=== PATIENT | female | born 1950 | race Caucasian/White ===

== ENCOUNTER → 2016-09-07 | Day surgery (SDC) | payer MEDICARE, OTHER ==
[~2016-09-07] MED LIST: ACETAMINOPHEN/HYDROcodone 325 MG/5 MG TAB ONE; BACITRACIN IM FOR SOLN 50,000 UNIT VIAL ONE; BUPIVACAINE/EPINEPHRINE 0.25% PF 30 ML VIAL ONE; GENTAMICIN SULFATE 80 MG/2 ML VIAL ONE; KETOROLAC TROMETHAMINE 30 MG/ML (IVP) VIAL IV PUSH ONE; LACTATED RINGER'S 1000 ML INJ 1,000 ML ONE; MIDAZOLAM HCL 2 MG/2 ML VIAL ONE; MORPHINE SULFATE 4 MG/ML INJ ONE; ONDANSETRON HCL 4 MG/2 ML VIAL IV PUSH ONE; PROPOFOL 200 MG/20 ML AMP IV ONE; SODIUM CHLORIDE 0.9% 250 ML ADDBAG IV ONE; SODIUM CHLORIDE 0.9% INJ 10 ML ONE; VANCOMYCIN HCL 1000 MG VIAL ONE; ceFAZolin 2 GM PREMIX 50 ML ONE; ceFAZolin INJ 1,000 MG VIAL ONE
--- NOTE | 2016-09-07 08:59 | TN ---
cc: PRABHJOT PONCE M.D. DATE OF SURGERY 09/07/2016 PREOPERATIVE DIAGNOSIS 1. Right knee medial compartment osteoarthritis, genu varus deformity. 2. Right knee chondromalacia patella 3. Morbid obesity POSTOPERATIVE DIAGNOSIS 1. Right knee medial compartment osteoarthritis, genu varus deformity. 2. Right knee chondromalacia patella 3. Morbid obesity PROCEDURE Right knee medial unicondylar arthroplasty, partial patellectomy SURGEON Pati Ponce MD SENIOR MEDICAL TRANSCRIPTIONIST MD Raeann Love PA-C SPECIMENS None ESTIMATED BLOOD LOSS Minimum COMPLICATIONS None ANESTHESIA General DRAINS One TOURNIQUET TIME 14 minutes at 300 mmHg CONDITION Stable PLAN OF ACTIVITY Per orders. PROCEDURE My delivery driver assistant, Van Ponce MD was present for the entire surgical case. He was medically necessary for the entire case because of the complexity of the case and to facilitate the performance of the procedure. The TECHNICAL SUPPORT 1 SOFTWARE ENGINEER at the back table was not a skill set this case to manipulate the instruments e.g. the multiple different types of soft tissue retractors, trial implants, permanent plans including bone cement. The patient was brought into the operating room and had satisfactory general endotracheal anesthesia by Dr. Gaspar of the Department Anesthesia. With the patient's morbid obesity, a considerable amount of time and care was made to protect all pressure points. The right lower extremity was prepped and draped in he usual sterile manner. The extremity was exsanguinated by Rajeev wrap, tourniquet was inflated to 300 mmHg. An anterior medial exposure to the knee was made. Dissection carried through a considerable amount of adipose tissue down to the underlying fascia. Paramedian capsulotomy was performed. The patient was found to have chondromalacia of the medial facette of the patella and also moderately severe osteoarthritis involving the medial compartment. The anterior cruciate ligament was preserved. The remaining portion of the medial meniscus was removed. The medial facet osteoarthritis of the patella was removed using oscillating saw with a partial patellectomy. Using the [employer] unicondylar arthroplasty system, the distal femur was prepared. An oscillating saw was used to remove the posterior condyle proximally 6-7 mm. A bur was then used to contour the proximal tibia to accept a #1 tibia, 6.5 mm tibial component. The distal femur was prepared to accept a #1 right medial femoral component. Trial reduction was made. The patient was found to have excellent balance with flexion/extension. All trial components removed. Preparation for cementing was made. Initially, the knee was injected with 50 cc of 0.25% Marcaine with epinephrine to provide postoperative analgesia and also postoperative hemostasis. One package of high viscosity bone cement by [employer] was used. First the tibial component was cemented followed by the femoral component. All excess bone cement was removed. The bone cement was allowed to harden for 14 minutes. The wound was irrigated with copious amounts of sterile saline. The wound itself was dry. The tourniquet was deflated. All bleeders were coagulated. The wound itself was dry. It was closed over an eighth inch Hemovac drain. The capsule was repaired with multiple #2 Tycron sutures. The subcutaneous tissues closed in multiple layers using 0 Vicryl and 2-0 Vicryl. The skin was approximated with running subcuticular 3-0 Vicryl. Benzoin, Steri-Strips were used. A sterile dressing applied. The patient tolerated the procedure well and arrived in the Recovery Room in stable and satisfactory condition. MD JULIO CESAR Chaudhry/AZIZA /8:37 AM /8:48 AM
== END | disposition home or self-care (01) ==
LOC: ESDC 06:03
PROVIDERS: ATTEND Orthopaedic Surgery Orthopaedic Surgery of the Spine
DX: M17.11 Unilateral primary osteoarthritis, right knee (principal); M21.161 Varus deformity, not elsewhere classified, right knee; M22.41 Chondromalacia patellae, right knee; E66.01 Morbid (severe) obesity due to excess calories
CPT/HCPCS: 01400; 27446; C1776; J0690; J1580; J1885; J2250; J2270; J2405; J3010; J3370; J7120